=== PATIENT | female | born 1980 | race Two or more races ===

== ENCOUNTER 2023-04-07 19:36 | Emergency (ER) | payer OTHER ==
[~2023-04-07] VITALS: Ht 160 cm; Wt 68.3 kg
[2023-04-07] MEDS: LORazepam 2MG/ML-1ML VIAL IV ONE ×2 (21:25→22:24)
[2023-04-07 21:30] VITALS: BP 148/102; PULSE 114; RESP 25; TEMP 98; O2SAT 97
[2023-04-07] MEDS ORDERED: CHL25C PO (22:59)
== END 2023-04-07 23:23 | disposition home or self-care (01) ==
LOC: ER 19:36
DX: F10.239 Alcohol dependence with withdrawal, unspecified (principal); I10 Essential (primary) hypertension; Z88.1 Allergy status to other antibiotic agents; Y90.9 Presence of alcohol in blood, level not specified
CPT/HCPCS: 93005; 96374; 96376; 99285; J2060

== ENCOUNTER 2023-10-23 13:10 | Inpatient (IN) | payer OTHER ==
[~2023-10-23] VITALS: Ht 162.6 cm; Wt 70.0 kg
[~2023-10-23 13:10] MED LIST: CHL25C PO
[2023-10-23] MEDS: chlordiazePOXIDE HCL 25 MG CAP PO ONE (14:15)
[2023-10-23] MEDS: SODIUM CHLORIDE 0.9% 1,000 ML IV ONE (14:15)
[2023-10-23 14:55] LABS: Basophils # (auto) 0 10 ^3/uL (0-0.2); Basophils % (auto) 0.4 % (0.0-2.0); Eosinophils # (auto) 0 10 ^3/uL (0-0.8); Eosinophils % (auto) 0.2 % (0.0-7.0); Hematocrit 37.5 % (36.0-46.0); Hemoglobin 12.9 g/dL (12.2-16.2); Lymphocytes # (auto) 0.7 10 ^3/uL (0.4-5.4); Lymphocytes % (auto) 8.8 % (10.0-50.0); Mean Corpuscular Hemoglobin 33.6 pg (28.0-32.0); Mean Corpuscular Hgb Conc. 34.5 g/dL (32.0-36.0); Mean Corpuscular Volume 97.3 fL (80.0-100.0); Monocytes # (auto) 0.4 10 ^3/uL (0-1.3); Monocytes % (auto) 5.9 % (0.0-12.0); Neutrophils # (auto) 6.4 10 ^3/uL (1.6-8.6); Neutrophils % (auto) 84.7 % (37.0-80.0); Platelet Count (auto) 218 10^3/uL (140-450); Red Blood Cells 3.85 10^6/uL (4.0-5.20); Red Cell Distribution Width 14.3 % (11.8-14.3); White Blood Cell 7.6 10^3/uL (4.4-10.8)
[2023-10-23 15:18] LABS: Alanine Aminotransferase 165 U/L (7-40); Albumin 4.5 g/dL (3.2-4.8); Alkaline Phosphatase 89 U/L (46-116); Anion Gap 15 (5-15); Aspartate Aminotransferase 445 U/L (13-40); BUN/Creatinine Ratio 18.5 (10.0-20.0); Bilirubin, Total 1.1 mg/dL (0.2-1.0); Blood Urea Nitrogen 15 mg/dL (9-23); Calcium 9.9 mg/dL (8.7-10.4); Carbon Dioxide 23 mmol/L (20-30); Chloride 96 mmol/L (98-107); Glucose 86 mg/dL (74-106); Potassium 3.2 mmol/L (3.5-5.1); Sodium 134 mmol/L (136-145); Total Protein 7.1 g/dL (5.7-8.2)
[2023-10-23] MEDS: ONDANSETRON HCL 4 MG/2 ML VIAL IV ONE (16:02)
[2023-10-23] MEDS: MORPHINE SULFATE 4 MG/ML SYR/VIAL IV ONE (16:05)
[2023-10-23] MEDS: LORazepam 2MG/ML-1ML VIAL IV ONE ×2 (16:47→18:29)
[2023-10-23] MEDS: POTASSIUM CHL 20 Meq TABLET PO ONE (17:26)
[2023-10-23 17:38] LABS: Urine Bacteria FEW /hpf (None Seen); Urine Blood Negative /uL (Negative); Urine Clarity Turbid (Clear); Urine Color Yellow (Yellow); Urine Mucus FEW (None Seen); Urine Protein, UAD 1+ (Negative); Urine Specific Gravity 1.027 (1.001-1.035); Urine Urobilinogen 3 mg/dL (Negative); Urine WBC 5 /hpf (0 - 5)
[2023-10-23 17:50] LABS: Amphetamine Screen, Urine Neg (NEGATIVE); Barbiturate Scree,Urine Neg (NEGATIVE); Benzodiazephine Screen, Urine Pos (NEGATIVE); Cannabinoid Screen, Urine Neg (NEGATIVE); Cocaine Screen, Urine Neg (NEGATIVE); Opiate Scree,Urine Pos (NEGATIVE); Phencyclidine Screen, Urine Neg (NEGATIVE)
[2023-10-23] MEDS ORDERED: DOCUSATE SOD 100 MG CAP PO PRN (18:15)
[2023-10-23] MEDS ORDERED: POTASSIUM CHL 20 Meq TABLET PO ONE (18:15)
[2023-10-23] MEDS ORDERED: ENOXAPARIN SOD 40 MG/0.4 ML SYRINGE SC SCH (18:15)
[2023-10-23] MEDS ORDERED: ACETAMINOPHEN 325 MG TAB PO PRN (18:15)
[2023-10-23] MEDS: SODIUM CHLOR 0.9% PF (SALINE LOCK) 10ML VIAL/SYR IV SCH (18:29)
[2023-10-23] MEDS: ONDANSETRON HCL 4 MG/2 ML VIAL IV PRN (19:43)
[2023-10-23] MEDS: MORPHINE SULFATE INJ 2 MG/ml SYRG IV PRN (19:44)
[2023-10-23] MEDS: HEPARIN SODIUM (PORCINE) 5000 UNITS/ML 1ML VIAL SC SCH (21:49)
[2023-10-23] MEDS: LORazepam 2MG/ML-1ML VIAL IV PRN (22:19)
[2023-10-23 23:02] VITALS: BP 119/76; PULSE 75; PULSE 82; RESP 18; RESP 20; TEMP 98.4; O2SAT 96; O2SAT 97
[2023-10-23] MEDS: HYDROcodone-ACET 5/325MG TAB PO PRN (23:23)
[2023-10-24 01:00] VITALS: BP 90/62; PULSE 73; RESP 18; TEMP 98.5; O2SAT 97
[2023-10-24 04:58] LABS: Basophils # (auto) 0 10 ^3/uL (0-0.2); Eosinophils # (auto) 0.1 10 ^3/uL (0-0.8); Eosinophils % (auto) 1.7 % (0.0-7.0); Monocytes # (auto) 0.7 10 ^3/uL (0-1.3); Monocytes % (auto) 11.7 % (0.0-12.0); Nucleated Red Blood Cells % 0.1 %
[2023-10-24 05:00] VITALS: BP 101/73; PULSE 68; RESP 16; TEMP 98.1; O2SAT 98
[2023-10-24 05:01] LABS: Basophils % (auto) 0.5 % (0.0-2.0); Hematocrit 32.6 % (36.0-46.0); Hemoglobin 11.4 g/dL (12.2-16.2); Lymphocytes % (auto) 32.9 % (10.0-50.0); Mean Corpuscular Hemoglobin 34.4 pg (28.0-32.0); Mean Corpuscular Hgb Conc. 35.1 g/dL (32.0-36.0); Mean Corpuscular Volume 98.1 fL (80.0-100.0); Neutrophils # (auto) 3.2 10 ^3/uL (1.6-8.6); Neutrophils % (auto) 53.2 % (37.0-80.0); Platelet Count (auto) 186 10^3/uL (140-450); Red Blood Cells 3.32 10^6/uL (4.0-5.20); Red Cell Distribution Width 14.2 % (11.8-14.3); White Blood Cell 6.1 10^3/uL (4.4-10.8)
[2023-10-24 05:30] LABS: Alanine Aminotransferase 136 U/L (7-40); Albumin 3.7 g/dL (3.2-4.8); Alkaline Phosphatase 68 U/L (46-116); Anion Gap 5 (5-15); Aspartate Aminotransferase 319 U/L (13-40); BUN/Creatinine Ratio 12.5 (10.0-20.0); Bilirubin, Total 0.9 mg/dL (0.2-1.0); Blood Urea Nitrogen 8 mg/dL (9-23); Calcium 9.1 mg/dL (8.7-10.4); Carbon Dioxide 28 mmol/L (20-30); Chloride 102 mmol/L (98-107); Glucose 100 mg/dL (74-106); Potassium 3.5 mmol/L (3.5-5.1); Sodium 135 mmol/L (136-145); Total Protein 6.3 g/dL (5.7-8.2)
[2023-10-24 08:00] VITALS: BP 104/68; PULSE 63; RESP 16; TEMP 98.2; O2SAT 95
[2023-10-24 12:00] VITALS: BP 110/75; PULSE 66; RESP 14; TEMP 98.5; O2SAT 95
[2023-10-24] MEDS ORDERED: METH-503 PO (15:35)
[2023-10-24] MEDS ORDERED: ESZO1TAB15 PO (15:35)
[2023-10-24] MEDS ORDERED: TRAZ-227 PO (15:35)
[2023-10-24] MEDS ORDERED: ALPR0.5T7 PO (15:35)
[2023-10-24 16:20] LABS: Albumin 3.9 g/dL (3.2-4.8); Bilirubin, Direct 0.3 mg/dL (<0.3); Bilirubin, Total 0.7 mg/dL (0.2-1.0); Total Protein 6.4 g/dL (5.7-8.2)
[2023-10-24] MEDS: LORazepam 0.5 MG TAB PO PRN (20:33)
[2023-10-24 21:00] VITALS: BP 98/75; PULSE 61; RESP 18; TEMP 98.1; O2SAT 91
[2023-10-25] VITALS (7 sets, daily range): BP systolic 111–130; BP diastolic 72–95; PULSE 62–85; RESP 16–18; TEMP 98.1–98.5; O2SAT 95–97
[2023-10-25 04:27] LABS: Basophils # (auto) 0 10 ^3/uL (0-0.2); Eosinophils # (auto) 0.1 10 ^3/uL (0-0.8); Monocytes # (auto) 0.6 10 ^3/uL (0-1.3); Monocytes % (auto) 12.1 % (0.0-12.0); Neutrophils # (auto) 3.3 10 ^3/uL (1.6-8.6)
[2023-10-25 04:29] LABS: Basophils % (auto) 0.8 % (0.0-2.0); Eosinophils % (auto) 1.1 % (0.0-7.0); Hematocrit 33.6 % (36.0-46.0); Hemoglobin 11.6 g/dL (12.2-16.2); Lymphocytes # (auto) 1.2 10 ^3/uL (0.4-5.4); Lymphocytes % (auto) 23.7 % (10.0-50.0); Mean Corpuscular Hemoglobin 34.3 pg (28.0-32.0); Mean Corpuscular Hgb Conc. 34.6 g/dL (32.0-36.0); Mean Corpuscular Volume 99.1 fL (80.0-100.0); Neutrophils % (auto) 62.3 % (37.0-80.0); Platelet Count (auto) 198 10^3/uL (140-450); Red Blood Cells 3.39 10^6/uL (4.0-5.20); Red Cell Distribution Width 14.3 % (11.8-14.3); White Blood Cell 5.2 10^3/uL (4.4-10.8)
[2023-10-25 04:45] LABS: Alanine Aminotransferase 147 U/L (7-40); Alkaline Phosphatase 66 U/L (46-116); Anion Gap 6 (5-15); BUN/Creatinine Ratio 11.1 (10.0-20.0); Blood Urea Nitrogen 6 mg/dL (9-23); Calcium 9.4 mg/dL (8.7-10.4); Carbon Dioxide 28 mmol/L (20-30); Chloride 105 mmol/L (98-107); Glucose 105 mg/dL (74-106); Potassium 3.6 mmol/L (3.5-5.1); Sodium 139 mmol/L (136-145)
[2023-10-25 04:46] LABS: Albumin 3.8 g/dL (3.2-4.8); Aspartate Aminotransferase 256 U/L (13-40); Bilirubin, Total 0.6 mg/dL (0.2-1.0); Total Protein 6.3 g/dL (5.7-8.2)
[2023-10-25] MEDS: LACTATED RINGER'S 1,000 ML IV SCH (13:17)
[2023-10-26 01:00] VITALS: BP 135/96; PULSE 77; RESP 16; TEMP 98.2; O2SAT 96
[2023-10-26 07:05] LABS: Basophils # (auto) 0 10 ^3/uL (0-0.2); Basophils % (auto) 1.1 % (0.0-2.0); Eosinophils # (auto) 0.1 10 ^3/uL (0-0.8); Monocytes # (auto) 0.7 10 ^3/uL (0-1.3); Neutrophils # (auto) 2.5 10 ^3/uL (1.6-8.6); Nucleated Red Blood Cells % 0.1 %
[2023-10-26 07:09] LABS: Eosinophils % (auto) 1.7 % (0.0-7.0); Hemoglobin 11.6 g/dL (12.2-16.2); Lymphocytes # (auto) 1.2 10 ^3/uL (0.4-5.4); Lymphocytes % (auto) 26.6 % (10.0-50.0); Mean Corpuscular Hemoglobin 34.7 pg (28.0-32.0); Mean Corpuscular Volume 99.2 fL (80.0-100.0); Monocytes % (auto) 14.4 % (0.0-12.0); Neutrophils % (auto) 56.2 % (37.0-80.0); Platelet Count (auto) 215 10^3/uL (140-450); Red Blood Cells 3.33 10^6/uL (4.0-5.20); Red Cell Distribution Width 14.7 % (11.8-14.3); White Blood Cell 4.5 10^3/uL (4.4-10.8)
[2023-10-26 07:19] LABS: Alanine Aminotransferase 181 U/L (7-40); Albumin 3.8 g/dL (3.2-4.8); Alkaline Phosphatase 74 U/L (46-116); Anion Gap 3 (5-15); Aspartate Aminotransferase 259 U/L (13-40); Bilirubin, Total 0.6 mg/dL (0.2-1.0); Calcium 9.6 mg/dL (8.7-10.4); Carbon Dioxide 30 mmol/L (20-30); Chloride 106 mmol/L (98-107); Glucose 107 mg/dL (74-106); Potassium 4.1 mmol/L (3.5-5.1); Sodium 139 mmol/L (136-145); Total Protein 6.1 g/dL (5.7-8.2)
[2023-10-26 07:30] LABS: Creatine Kinase IFCC 1534 U/L (34-145)
[2023-10-26 07:39] LABS: BUN/Creatinine Ratio 8.8 (10.0-20.0); Blood Urea Nitrogen < 5 mg/dL (9-23)
[2023-10-26 08:00] VITALS: PULSE 84; RESP 20; O2SAT 96
[2023-10-26 09:00] VITALS: BP 133/95; PULSE 84; RESP 20; TEMP 97.9; O2SAT 94
[2023-10-26 13:00] VITALS: BP 129/96; PULSE 86; RESP 20; TEMP 97.6; O2SAT 95
[2023-10-26] MEDS ORDERED: HYDR-4902 PO (13:37)
[2023-10-26 14:02] VITALS: BP 129/96; PULSE 86; RESP 20; TEMP 97.6; O2SAT 95
== END 2023-10-26 14:54 | disposition home or self-care (01) | DRG 83 ==
LOC: ER 13:10 → OVERFLOW 18:11 → WEST WING 23:02
PROVIDERS: ADMIT Internal Medicine Hematology & Oncology; ATTEND Internal Medicine
DX: S06.9X9A Unspecified intracranial injury with loss of consciousness of unspecified duration, initial encounter (principal); F10.139 Alcohol abuse with withdrawal, unspecified; N39.0 Urinary tract infection, site not specified; M62.82 Rhabdomyolysis; S16.1XXA Strain of muscle, fascia and tendon at neck level, initial encounter; S39.012A Strain of muscle, fascia and tendon of lower back, initial encounter; S40.021A Contusion of right upper arm, initial encounter; S40.022A Contusion of left upper arm, initial encounter; D64.9 Anemia, unspecified; E87.6 Hypokalemia; F10.129 Alcohol abuse with intoxication, unspecified; F41.9 Anxiety disorder, unspecified; I10 Essential (primary) hypertension; W18.2XXA Fall in (into) shower or empty bathtub, initial encounter; Y90.9 Presence of alcohol in blood, level not specified; R74.01 Elevation of levels of liver transaminase levels; Z88.1 Allergy status to other antibiotic agents; Y92.89 Other specified places as the place of occurrence of the external cause; Y99.8 Other external cause status; Y93.E1 Activity, personal bathing and showering; Z82.49 Family history of ischemic heart disease and other diseases of the circulatory system; Z95.0 Presence of cardiac pacemaker
CPT/HCPCS: 36415; 70450; 71045; 72125; 72131; 73060; 73090; 76705; 80053; 80076; 80307; 80320; 81001; 82550; 84484; 84702; 85025; 93306; 96361; 96374; 96375; 96376; G0378; J2405

== ENCOUNTER 2024-03-15 19:05 | Emergency (ER) | payer OTHER ==
[~2024-03-15] VITALS: Ht 162.6 cm; Wt 65.9 kg
[~2024-03-15 19:05] MED LIST changes: +ALPR0.5T7 PO; -CHL25C PO; +ESZO1TAB15 PO; +HYDR-4902 PO; +METH-503 PO; +TRAZ-227 PO
[2024-03-15] MEDS: SODIUM CHLORIDE 0.9% 1,000 ML IV ONE (19:45)
--- NOTE | 2024-03-15 20:17 | DVH ---
EXAM: CT HEAD WITHOUT CONTRAST HISTORY: HEAD INJURY, AMS COMPARISON: CT CERVICAL WITHOUT CONTRAST on DOS: 10/23/23, CT HEAD WITHOUT CONTRAST on DOS: 10/23/23 TECHNIQUE: Axial images were obtained and reformatted in coronal and sagittal planes. All CT scans at this medical facility are performed using dose modulation techniques as appropriate t o a performed exam including the following: Automated exposure control was utilized; adjustment of th e MA and/or KV according to patient size; and use of iterative reconstruction technique. CT Dose: CTDI volume is 53.99 mGy. Dose-length product is 863.9 mGy*cm FINDINGS: Supratentorial Region: No evidence for large acute territorial ischemia. Small anterior and medial right frontal subdural hematoma measuring up to 3 mm in thickness without midline shift. Posterior Fossa: No acute abnormality. Brainstem: Unremarkable. Sellar/Suprasellar Region: Unremarkable. Ventricles, Cisterns, Sulci: Age-appropriate. Orbits: Unremarkable. Paranasal Sinuses: Unremarkable. Mastoid Air Cells: Unremarkable. Vasculature: Unremarkable. Bones/Soft Tissues: No acute abnormality. Other: None. IMPRESSION: 1. Small right frontal subdural hematoma measuring up to 3 mm in thickness without midline shift. Dr. Mina was notified of findings on 03/15/2024 at 8:13 p.m..
[2024-03-15] MEDS: LORazepam 2MG/ML-1ML VIAL IV ONE (20:33)
[2024-03-15] MEDS: MVI in SODIUM CHLORIDE 0.9% 1,010 ML IV ONE (20:33)
[2024-03-15] MEDS: THIAMINE 100mg/ml INJ (200mg/2ml VIAL) IV ONE (20:33)
[2024-03-15 20:34] LABS: Basophils # (auto) 0 10 ^3/uL (0-0.2); Basophils % (auto) 0.4 % (0.0-2.0); Eosinophils # (auto) 0 10 ^3/uL (0-0.8); Hematocrit 32.4 % (36.0-46.0); Hemoglobin 11.3 g/dL (12.2-16.2); Lymphocytes # (auto) 0.5 10 ^3/uL (0.4-5.4); Lymphocytes % (auto) 7.9 % (10.0-50.0); Mean Corpuscular Hemoglobin 33.3 pg (28.0-32.0); Mean Corpuscular Hgb Conc. 34.8 g/dL (32.0-36.0); Mean Corpuscular Volume 95.6 fL (80.0-100.0); Monocytes # (auto) 0.4 10 ^3/uL (0-1.3); Monocytes % (auto) 6.3 % (0.0-12.0); Neutrophils # (auto) 5.7 10 ^3/uL (1.6-8.6); Neutrophils % (auto) 85.4 % (37.0-80.0); Nucleated Red Blood Cells % 0.1 %; Platelet Count (auto) 138 10^3/uL (140-450); Red Blood Cells 3.39 10^6/uL (4.0-5.20); Red Cell Distribution Width 14.2 % (11.8-14.3); White Blood Cell 6.7 10^3/uL (4.4-10.8)
[2024-03-15] MEDS: MAGNESIUM SULFATE 1GM/100ML 100 ML IV SCH (20:45)
[2024-03-15 21:06] LABS: INR 1.28 (0.9-1.15); Prothrombin Time 13.2 sec (9.3-11.8)
[2024-03-15] MEDS: levETIRAcetam 500 mg/100ml 100 ML IV ONE (21:15)
--- NOTE | 2024-03-15 21:20 | ED.PDOC ---
Psychiatric HPI Comments 43y F who presents to the ED for chief complaint of ETOH withdrawal. Pt states she has been binge drinking for the past 3 weeks. 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 Pt states he stopped buying her alcohol today and pt had last drink possibly early this AM but pt has been sneaking EOTH. Pt states today, he found her passed out on the floor of bathroom but states he does not know if she hit her head or not. prior to syncopal. Pt states she has been having associated body aches and pain with associated nausea and vomiting. Pt states she has had this ETOH withdrawal in the past and hospitalized at . Pt otherwise noted to be in distress in the ED. Pt denies any other symptoms at this time. Pt denies any suicidal or homicidal ideations. Chief Complaint: Withdrawal Time Seen by MD: 20:45 Reviewed Notes: Nurses Notes Information Source: Patient, Spouse Mode of Arrival: Ambulatory Vital Signs Vital Signs Date Time Temp Pulse Resp B/P (MAP) Pulse Ox O2 Delivery O2 Flow Rate FiO2 03/15/24 22:15 98.7 126 20 132/80 (97) 98 98.7 03/15/24 21:22 Room Air* 0 21 Physical Exam General: Awake, alert and oriented. No acute distress. Skin: Skin in warm, dry and intact. Appropriate color for ethnicity. Nailbeds pink with no cyanosis. HEENT: The head is normocephalic and atraumatic. Scalp laceration or hematoma noted. Conjunctivae are clear without exudates or hemorrhage. Sclera is non- icteric. EOM are intact. No signs of nystagmus. Eyelids are normal in appearance without swelling or lesions. Oral mucosa is pink and moist her blood Neck: The neck is supple with normal range of motion. No JVD. Cardiac: Rash rate rhythm is normal. No murmurs, gallops, or rubs are auscultated. Respiratory: No signs of respiratory distress. Lung sounds are clear in all lobes bilaterally without rales, ronchi, or wheezes. Abdominal: Abdomen is soft, non-tender without distention. Bowel sounds are present and normoactive in all four quadrants. Extremities: Upper and lower extremities are atraumatic in appearance without deformity or edema. Neurological: The patient is awake, alert and oriented to person, place, and time with normal speech. Speech is clear. There is no facial asymmetry. Patient has significant hemorrhage. Psychiatric: Patient appears anxious rapid pressured speech Review of Systems: REVIEW OF SYSTEMS: No fever, no chills, or fatigue HEENT: No sore throat, no earache, no congestion, no neck pain. Cardiac: No chest pain. No palpitations. Lungs: No shortness of breath, no cough. GI: No nausea, no vomiting, no diarrhea, no constipation, no abdominal pain : No dysuria, frequency, or urgency. No hematuria. Musculoskeletal: No joint pain , no joint swelling, no extremity edema. Skin: No rash, no itching. Neuro: No headache, no dizziness, no weakness Past Medical History PAST MEDICAL HISTORY: HTN Surgical History: Pacemaker HOG SAWYER History: Denies all HOG SAWYER Hx Family History Family History: Unknown Social History Smoker: Non-Smoker Alcohol: Heavy Drugs: Denies Drug Use Lives In: Home EKG Vital Signs Vital Signs Date Time Temp Pulse Resp B/P (MAP) Pulse Ox O2 Delivery O2 Flow Rate FiO2 03/15/24 22:15 98.7 126 20 132/80 (97) 98 98.7 03/15/24 21:22 Room Air* 0 21 Was a procedure done? Was a procedure done?: No Psych Differential Dx OD Differential Dx: Alcohol Abuse, Anxiety, Encephalopathy Intoxication Differential Dx: Alcohol Withdraw Syndrome, Delerium Tremens, Seizures Other Differentail Dx closed head injury, hematoma X-Ray, Labs, Meds, VS Vital Signs Date Time Temp Pulse Resp B/P (MAP) Pulse Ox O2 Delivery O2 Flow Rate FiO2 03/15/24 22:15 98.7 126 20 132/80 (97) 98 98.7 03/15/24 21:22 140 32 98 Room Air* 0 21 03/15/24 21:20 98.9 140 32 146/96 (113) 98 98.9 03/15/24 20:20 125 22 140/83 (102) 98 03/15/24 20:20 125 22 98 Room Air 03/15/24 19:20 98.9 145 26 165/107 (126) 98 Lab Test 03/15/24 22:03 03/15/24 20:16 Range/Units Sodium Level 126 L 136-145 mmol/L Potassium Level 2.8 L 3.5-5.1 mmol/L Chloride Level 90 L 98-107 mmol/L Carbon Dioxide Level 18 L 20-31 mmol/L Anion Gap 18 H 5-15 Blood Urea Nitrogen 5 L 9-23 mg/dL Creatinine 0.66 0.550-1.02 mg/dL Glomerular Filtration Rate Calc 112 >90 mL/min BUN/Creatinine Ratio 7.6 L 10.0-20.0 Serum Glucose 168 H 74-106 mg/dL Lactic Acid Level 8.0 *H 12.9 *H 0.4-2.0 mmol/L Calcium Level 8.3 L 8.7-10.4 mg/dL Magnesium Level 1.0 L 1.6-2.6 mg/dL Total Bilirubin 1.3 H 0.2-1.0 mg/dL Aspartate Amino Transferase (AST) 408 H 13-40 U/L Alanine Aminotransferase (ALT) 190 H 7-40 U/L Alkaline Phosphatase 93 46-116 U/L Total Protein 5.7 5.7-8.2 g/dL Albumin 3.5 3.2-4.8 g/dL Plasma/Serum Blood Alcohol 106.5 H <10 mg/dL White Blood Count 6.7 4.4-10.8 10^3/uL Red Blood Count 3.39 L 4.0-5.20 10^6/uL Hemoglobin 11.3 L 12.2-16.2 g/dL Hematocrit 32.4 L 36.0-46.0 % Mean Corpuscular Volume 95.6 80.0-100.0 fL Mean Corpuscular Hemoglobin 33.3 H 28.0-32.0 pg Mean Corpuscular Hemoglobin Concent 34.8 32.0-36.0 g/dL Red Cell Distribution Width 14.2 11.8-14.3 % Platelet Count 138 L 140-450 10^3/uL Mean Platelet Volume 9.3 6.9-10.8 fL Neutrophils (%) (Auto) 85.4 H 37.0-80.0 % Lymphocytes (%) (Auto) 7.9 L 10.0-50.0 % Monocytes (%) (Auto) 6.3 0.0-12.0 % Eosinophils (%) (Auto) 0.0 0.0-7.0 % Basophils (%) (Auto) 0.4 0.0-2.0 % Neutrophils # (Auto) 5.7 1.6-8.6 10 ^3/uL Lymphocytes # (Auto) 0.5 0.4-5.4 10 ^3/uL Monocytes # (Auto) 0.4 0-1.3 10 ^3/uL Eosinophils # (Auto) 0 0-0.8 10 ^3/uL Basophils # (Auto) 0 0-0.2 10 ^3/uL Nucleated Red Blood Cells 0.1 % Prothrombin Time 13.2 H 9.3-11.8 sec Prothrombin Time INR 1.28 H 0.9-1.15 Ammonia 16 11-32 umol/L Troponin I High Sensitivity 23 </=34 ng/L Current Medications Medications (Trade) Dose Ordered Sig/Maranda Route Start Time Stop Time Status Last Admin Levetiracetam 100 ml @ 400 mls/hr ONCE ONCE IV 03/15/24 21:15 03/15/24 21:29 DC 03/15/24 21:15 [place] [id number] Ph: [phone] DIAGNOSTIC IMAGING Diagnostic Imaging Report : [id number] Signed PATIENT: ISABELLA BYRNEACCT: [id number] UNIT: [id number] : 1980 LOC: ER ROOM / BED: / AGE / SEX: 43 / F ADM STATUS: REG ER SERVICE 34 ORDERING PHYSICIAN: LLOYD MINA MD PROCEDURE(s): HWOCT - HEAD WITHOUT CONTRAST REASON: HEAD INJURY, AMS ORDER NUMBER(s): [id number], ACCESSION NUMBER(s): [id number] EXAM: CT HEAD WITHOUT CONTRAST HISTORY: HEAD INJURY, AMS COMPARISON: CT CERVICAL WITHOUT CONTRAST on DOS: 10/23/23, CT HEAD WITHOUT CONTRAST on DOS: 10/23/23 TECHNIQUE: Axial images were obtained and reformatted in coronal and sagittal planes. All CT scans at this medical facility are performed using dose modulation techniques as appropriate to a performed exam including the following: Automated exposure control was utilized; adjustment of the MA and/or KV according to patient size; and use of iterative reconstruction technique. CT Dose: CTDI volume is 53.99 mGy. Dose-length product is 863.9 mGy*cm FINDINGS: Supratentorial Region: No evidence for large acute territorial ischemia. Small anterior and medial right frontal subdural hematoma measuring up to 3 mm in thickness without midline shift. Posterior Fossa: No acute abnormality. Brainstem: Unremarkable. Sellar/Suprasellar Region: Unremarkable. Ventricles, Cisterns, Sulci: Age-appropriate. Orbits: Unremarkable. Paranasal Sinuses: Unremarkable. Mastoid Air Cells: Unremarkable. Vasculature: Unremarkable. Bones/Soft Tissues: No acute abnormality. Other: None. IMPRESSION: 1. Small right frontal subdural hematoma measuring up to 3 mm in thickness without midline shift. Dr. Mina was notified of findings on 03/15/2024 at 8:13 p.m.. ATED BY: MAKENZIE KASPER MD DICTATED DATE/TIME: 03/15/242014 SIGNED BY: MAKENZIE KASPER MD SIGNED DATE/TIME: 03/15/242014 CC: Time of 1ST Reevaluation: 21:15 Reevaluation 1ST: Unchanged Patient Education/Counseling: Diagnosis, Treatment Family Education/Counseling: Diagnosis, Treatment Departure 1 Departure Time of Disposition: 22:09 Impression: Primary Impression: Subdural hematoma Additional Impressions: Alcohol withdrawal Lactic acidemia Disposition: HOME / SELF CARE / HOMELESS Condition: Stable Comments 43-year-old female presents to the emergency department with a with alcohol withdrawal symptoms. States he found her on the floor. She reports she hit her head on the tub, unknown time. Also reports frequent falls due to alcohol intoxication. No sign of major trauma on physical exam. Patient is awake, alert, neurologically intact. Small right subdural hematoma no midline shift CT head. Patient is stable during the ED observation. Patient transferred to [facility] for neurosurgery services. Ativan administered for alcohol withdrawal symptoms Keppra administered for seizure prophylaxis IV fluids in progress for lactic acidemia Transferred for neurosurgery services Critical Care Note Critical Care Time?: Yes (30 min-critical care time only) Critical care comment: Due to a high probability of clinically significant, life threatening deterioration, the patient required my highest level of preparedness to intervene emergently and I personally spent this critical care time directly and personally managing the patient. This critical care time included obtaining a hi story; examining the patient; pulse oximetry; ordering and review of studies; arranging urgent treatment with development of a management plan; evaluation of patient's response to treatment; frequent reassessment; and, discussions with other providers. This critical care time was performed to assess and manage the high probability of imminent, life-threatening deterioration that could result in multi-organ failure. It was exclusive of separately billable procedures and treating other patients and teaching time. Please see my other sections and the rest of the note for further information on patient assessment and treatment. Stability Stability form required: No Heart Score Heart Score: Heart Score Response (Comments) Value History N/A 0 EKG N/A 0 Age N/A 0 Risk Factors N/A 0 Troponin N/A 0 Total 0 I personally scribed for LLOYD MINA MD ([email or web address]) on 03/15/24 at 21:20. Electronically submitted by Herminia Fuller ([employer] I personally scribed for LLOYD MINA MD ([email or web address]) on 03/15/24 at 21:24. Electronically submitted by Herminia Fuller ([email or web address]). LLOYD MINA MD Mar 15, 2024 21:20
[2024-03-15 21:22] VITALS: PULSE 140; RESP 32; O2SAT 98
[2024-03-15 21:41] LABS: Lactic Acid w/Reflex 12.9 mmol/L (0.4-2.0)
--- NOTE | 2024-03-15 21:44 | DVH ---
EXAM: CT CERVICAL WITHOUT CONTRAST INDICATION: fall EXAM DATE: 03/15/2024 09:19 PM COMPARISON: CT HEAD WITHOUT CONTRAST on DOS: 03/15/24, CT CERVICAL WITHOUT CONTRAST on DOS: 10/23/23, C T HEAD WITHOUT CONTRAST on DOS: 10/23/23 TECHNIQUE: Multiple axial CT images of the cervical spine were obtained using bone algorithm. Axial a nd coronal reformatting was done. Bone and soft tissue windows were reviewed. Radiation Dose Information: CT Dose: CTDI volume is 20.12 mGy. Dose-length product is 489.8 mGy*cm FINDINGS: The cervical alignment is intact. No acute cervical spine fracture is identified. The vertebral body heights are intact. No suspicious osseous lesions are identified. No significant degenerative changes are identified. There is no prevertebral soft tissue swelling. IMPRESSION: 1. No evidence of acute cervical spine fracture or traumatic malalignment. 2. All CT scans at this medical facility are performed using dose modulation techniques as appropriat e to a performed exam including the following: Automated exposure control was utilized; adjustment of the MA and/or KV according to patient size; and use of iterative reconstruction technique.
[2024-03-15 22:15] VITALS: BP 132/80; PULSE 126; RESP 20; TEMP 98.7; O2SAT 98
[2024-03-15 22:38] LABS: Albumin 3.5 g/dL (3.2-4.8); Alkaline Phosphatase 93 U/L (46-116); Anion Gap 18 (5-15); BUN/Creatinine Ratio 7.6 (10.0-20.0); Blood Alcohol 106.5 mg/dL (<10)
[2024-03-15 22:50] LABS: Alanine Aminotransferase 190 U/L (7-40); Aspartate Aminotransferase 408 U/L (13-40); Bilirubin, Total 1.3 mg/dL (0.2-1.0); Blood Urea Nitrogen 5 mg/dL (9-23); Calcium 8.3 mg/dL (8.7-10.4); Carbon Dioxide 18 mmol/L (20-31); Chloride 90 mmol/L (98-107); Glucose 168 mg/dL (74-106); Potassium 2.8 mmol/L (3.5-5.1); Sodium 126 mmol/L (136-145); Total Protein 5.7 g/dL (5.7-8.2)
--- NOTE | 2024-03-17 13:57 | ECG ---
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
== END 2024-03-15 22:34 | disposition short-term general hospital (02) ==
LOC: ER 19:05
DX: S06.5XAA Traumatic subdural hemorrhage with loss of consciousness status unknown, initial encounter (principal); F10.239 Alcohol dependence with withdrawal, unspecified; E87.20 Acidosis, unspecified; I10 Essential (primary) hypertension; R11.2 Nausea with vomiting, unspecified; R55 Syncope and collapse; Z95.0 Presence of cardiac pacemaker; X58.XXXA Exposure to other specified factors, initial encounter; Y93.89 Activity, other specified; Y92.89 Other specified places as the place of occurrence of the external cause; Y99.8 Other external cause status
CPT/HCPCS: 36415; 70450; 72125; 80053; 80320; 82140; 83605; 83735; 84484; 85025; 85610; 93005; 96361; 96365; 96375; 99291; J1953; J2060; J3411; J3475; J7030